=== PATIENT | female | born 1940 | race Caucasian/White ===

== ENCOUNTER 2018-10-18 13:00 | Outpatient (CLI) | payer BC ==
[2013-06-05 08:57] VITALS: O2SAT 96
== END 2018-10-18 13:01 | disposition home or self-care (01) | DRG 310 ==
LOC: CONVCARE 13:00
PROVIDERS: ATTEND Internal Medicine Cardiovascular Disease
DX: R00.2 Palpitations (principal)
CPT/HCPCS: 93005